=== PATIENT | male | born 1970 | race African-American/Black ===

== ENCOUNTER 2017-12-02 10:00 | Emergency (ER) | payer OTHER ==
[2017-12-02 10:06] VITALS: BP 146/76; PULSE 75; RESP 16; TEMP 97.9; O2SAT 99
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
== END 2017-12-02 10:44 | disposition home or self-care (01) ==
LOC: PHEFT 10:00
DX: S13.4XXA Sprain of ligaments of cervical spine, initial encounter (principal); S33.5XXA Sprain of ligaments of lumbar spine, initial encounter; V49.40XA Driver injured in collision with unspecified motor vehicles in traffic accident, initial encounter
CPT/HCPCS: 99282